=== PATIENT | male | born 1975 | race Caucasian/White ===

== ENCOUNTER 2018-11-01 17:32 | Observation (INO) | payer OTHER ==
[~2018-11-01] VITALS: Ht 180.3 cm; Wt 90.3 kg
--- OUTSIDE RECORDS SUMMARY | 2018-11-01 17:35 | XMS REPORT | Continuity of Care Document ---
Author Author [email or web address] Address Unknown Phone Unavailable Care Team Providers Care Cut Out Stitcher Name Role Phone [employer] Unavailable Unavailable Problems Problem Status Onset Date Classification Date Reported Comments Source Body mass index 25-29 - overweight 10/31/2018 Diagnosis 10/31/2018 [facility] Abscess 10/31/2018 Diagnosis 10/31/2018 [facility] Decreased testosterone level 10/31/2018 Problem 10/31/2018 [facility] Rhinitis 02/27/2018 Diagnosis 02/27/2018 [facility] Sore throat symptom 02/27/2018 Diagnosis 02/27/2018 [facility] Elevated blood pressure 02/27/2018 Diagnosis 02/27/2018 [facility] Medications Medication Details Route Status Patient Instructions Ordering Provider Order Date Source 1 ML methylprednisolone acetate 80 MG/ML Injection [Depo-Medrol] Depo-Medrol 80 mg/mL suspension for injection Take 1 mL by injection route. Active [facility] testosterone (bulk) testosterone (bulk) Active [facility] Cephalexin 500 MG Oral Capsule [Keflex] Keflex 500 mg capsule Take 1 capsule twice a day by oral route for 10 days. Active [facility] Mupirocin 0.02 MG/MG Topical Ointment mupirocin 2 % topical ointment APPLY A SMALL AMOUNT TO THE AFFECTED AREA BY TOPICAL ROUTE 3 TIMES PER DAY Active [facility] 1 ML testosterone cypionate 200 MG/ML Injection testosterone cypionate 200 mg/mL intramuscular oil INJECT 1/2 ML IM ONCE PER WEEK UTD Active [facility] Allergies, Adverse Reactions, Alerts No Known Medication Allergies Immunizations Immunization Date Given Site Status Last Updated Comments Source influenza, injectable, quadrivalent 12/05/2017 completed [facility] Results Order Name Results Value Reference Range Date Interpretation Comments Source RESULT negative 02/27/2018 [facility] SWAB LOCATION Left and Right tonsillar pillars 02/27/2018 [facility] Pathology Reports No Data Provided for This Section Diagnostic Reports No Data Provided for This Section Consultation Notes No Data Provided for This Section Discharge Summaries No Data Provided for This Section History and Physicals No Data Provided for This Section Vital Signs Vital Sign Value Date Comments Source Diastolic (mm Hg) 70 10/31/2018 [facility] Height 71 10/31/2018 [facility] Systolic (mm Hg) 118 10/31/2018 [facility] Weight 199 10/31/2018 [facility] Diastolic (mm Hg) 78 02/27/2018 [facility] Height 71 02/27/2018 [facility] Systolic (mm Hg) 120 02/27/2018 [facility] Weight 194 02/27/2018 [facility] Encounters Location Location Details Encounter Type Encounter Number Reason For Visit Attending Provider ADM Date DC Date Status Source [place] - [facility] - [id number] Dustin Moran, OCEANOGRAPHER GEOLOGICAL-C: [address] [place] [address], Ph. [id number] Dustin Flynnwe 02/27/2018 [facility] [place] - [facility] - [id number] Dustin Moran, OCEANOGRAPHER GEOLOGICAL-C: [address] [place] [address], Ph. [id number] Dustin Flynnwe 10/31/2018 [facility] Procedures Procedure Code Date Perfomer Comments Source Tonsillectomy [facility] Assessment and Plan No Data Provided for This Section Plan of Care No Data Provided for This Section Social History Social History Date Source Tobacco Smoking Status Never Smoker 02/27/2018 [facility] Family History No Data Provided for This Section Advance Directives No Data Provided for This Section Functional Status No Data Provided for This Section
--- OUTSIDE RECORDS SUMMARY | 2018-11-01 17:35 | XMS REPORT | Summary of Care ---
Author Author KAMALJIT BUTTS Organization Unknown Address Unknown Phone Unavailable Care Team Providers Care Data Integration Analyst Name Role Phone KAMALJIT BUTTS Unavailable Unavailable MARIA VICTORIA DUNLAP, CHIP Umanzor Unavailable CHIP IRENE M.D. Unavailable Unavailable Unavailable Functional Status Name Dates Details Functional status health issues are not documented Status: Name Dates Details Cognitive status health issues are not documented Status: Problems Name Dates Details Allergic rhinitis (477.9, J30.9) Status: Active Otitis, serous (381.4, H65.90) Status: Active Limb pain (729.5, M79.609) Status: Active Shoulder impingement, right (726.2, M75.41) Status: Active Headache (784.0, R51) Status: Active Paresthesia (782.0, R20.2) Status: Active Lipid screening (V77.91, Z13.220) Status: Active Maxillary sinusitis (473.0, J32.0) Status: Active Medications Name Dates Details Bonnie 180 MG TABS TAKE 1 TABLET DAILY NEEDED FOR ALLERGIES. Active Amoxicillin-Pot Clavulanate 875-125 MG Oral Tablet TAKE 1 TABLET EVERY 12 HOURS DAILY. * Quantity: 20 Refills: 0 KAMALJIT BUTTS * Start : 15-Jun-2017 End : 25-Jun-2017 Active Allergies and Adverse Reactions Name Dates Details No Known Drug Allergies (Allergy) Status: Active Past Medical History Name Dates Details History of Denial Of Any Significant Medical History Status: Resolved Procedures Procedure Dates Details History of Tonsillectomy With Adenoidectomy Completed Immunization Name Dates Details Influenza on: Jan-2014 Fluzone Quadrivalent 0.5 ML Intramuscular Suspension on: 2017 Family History Name Dates Details Family history of throat cancer (V16.0, Z80.0) Status: Active Name Dates Details Family history of Known health problems: none (V49.89, Z78.9) Status: Active Name Dates Details Family history of Prostate Cancer (V16.42) Status: Active Family history of History of prostatectomy (V45.89, Z90.79) Status: Active Name Dates Details Family history of (798.2, R99) Status: Active Name Dates Details Family history of coronary artery disease (V17.3, Z82.49) Status: Active Family history of Coronary atherosclerosis of artery bypass graft (414.04, I25.810) Status: Active Social History Name Dates Details - Status: Name Dates Details Never smoker Vital Signs Date Test Result Details [id number] BP Systolic 117 mm[Hg] Status: Comments: Location: LUE; Position: Sitting BP Diastolic 63 mm[Hg] Status: Comments: Location: LUE; Position: Sitting Height 70.39 in Status: Weight 189.42512 lb Status: Body Mass Index Calculated 26.82 kg/m2 Status: Body Surface Area Calculated 2.05 m2 Status: Temperature 97.6 f Status: Comments: Method: Oral Heart Rate 61 /min Status: Comments: Location: L Brachial Artery; Quality: Normal O2 SAT 97 % Status: Comments: Source: RA Results Date Description Value Details :21 [[facility]] LIPID PANEL CHOLESTEROL, TOTAL 157 mg/dl (Normal) Range: <200 HDL CHOLESTEROL 57 mg/dl (Normal) Range: >40 TRIGLYCERIDES 56 mg/dl (Normal) Range: <150 LDL-CHOLESTEROL 86 {MG/DL__CAL} (Normal) Comments: Reference range: <100 Desirable range <100 mg/dL for patients with CHD ordiabetes and <70 mg/dL for diabetic patients withknown heart disease. LDL-C is now calculated using the Mary Anne chopra calculation, which is a validated novel method providing better accuracy than the Friedewald equation in the estimation of LDL-C. Mark TORRES et al. CHATO. 2013;310(19): 7612-4548 (http://education.Netnui.com.com/faq/AVV533) CHOL/HDLC RATIO 2.8 {CALC} (Normal) Range: <5.0 NON HDL CHOLESTEROL 100 {MG/DL__CAL} (Normal) Range: <130 Comments: For patients with diabetes plus 1 major ASCVD risk factor, treating to a non-HDL-C goal of <100 mg/dL (LDL-C of <70 mg/dL) is considered a therapeutic option. :21 [QL] CMP W/EGFR GLUCOSE 86 mg/dl (Normal) Range: 65-99 Comments: Fasting reference interval UREA NITROGEN (BUN) 16 mg/dl (Normal) Range: 7-25 CREATININE 1.09 mg/dl (Normal) Range: 0.60-1.35 eGFR NON- 84 {ML/MIN/1.7} (Normal) Range: > OR=60 eGFR 98 {ML/MIN/1.7} (Normal) Range: > OR=60 BUN/CREATININE RATIO NOT APPLICABLE {CALC} Range: 6-22 SODIUM 141 mmol/L (Normal) Range: 135-146 POTASSIUM 5.4 mmol/L (Above high threshold) Range: 3.5-5.3 CHLORIDE 105 mmol/L (Normal) Range: 98-110 CARBON DIOXIDE 27 mmol/L (Normal) Range: 20-31 CALCIUM 9.5 mg/dl (Normal) Range: 8.6-10.3 PROTEIN, TOTAL 6.6 g/dl (Normal) Range: 6.1-8.1 ALBUMIN 4.4 g/dl (Normal) Range: 3.6-5.1 GLOBULIN 2.2 {G/DL__CALC} (Normal) Range: 1.9-3.7 ALBUMIN/GLOBULIN RATIO 2.0 {CALC} (Normal) Range: 1.0-2.5 BILIRUBIN, TOTAL 0.6 mg/dl (Normal) Range: 0.2-1.2 ALKALINE PHSPHATASE 68 u/l (Normal) Range: 40-115 AST 16 u/l (Normal) Range: 10-40 ALT 11 u/l (Normal) Range: 9-46 [id number] [QL] SED RATE BY MODIFIED WESTERGREN SED RATE BY MODIFIED WESTERGREN 2 mm/h (Normal) Range: < OR=15 [id number] [QL] CBC (INCLUDES DIFF/PLT) WHITE BLOOD CELL COUNT 5.3 {Thousand/u} (Normal) Range: 3.8-10.8 RED BLOOD CELL COUNT 5.01 {Million/uL} (Normal) Range: 4.20-5.80 HEMOGLOBIN 14.0 g/dl (Normal) Range: 13.2-17.1 HEMATOCRIT 42.2 % (Normal) Range: 38.5-50.0 MCV 84.2 fL (Normal) Range: 80.0-100.0 MCH 27.9 pg (Normal) Range: 27.0-33.0 MCHC 33.2 g/dl (Normal) Range: 32.0-36.0 RDW 12.7 % (Normal) Range: 11.0-15.0 PLATELET COUNT 252 {Thousand/u} (Normal) Range: 140-400 MPV 10.8 fL (Normal) Range: 7.5-12.5 ABSOLUTE NEUTROPHILS 2772 {cells/uL} (Normal) Range: 3853-4276 ABSOLUTE LYMPHOCYTES 1844 {cells/uL} (Normal) Range: 850-3900 ABSOLUTE MONOCYTES 307 {cells/uL} (Normal) Range: 200-950 ABSOLUTE EOSINOPHILS 318 {cells/uL} (Normal) Range: 15-500 ABSOLUTE BASOPHILS 58 {cells/uL} (Normal) Range: 0-200 NEUTROPHILS 52.3 % (Normal) LYMPHOCYTES 34.8 % (Normal) MONOCYTES 5.8 % (Normal) EOSINOPHILS 6.0 % (Normal) BASOPHILS 1.1 % (Normal) [id number] [QLH] FOLATE, SERUM FOLATE, SERUM 15.5 ng/ml (Normal) Comments: Reference Range Low: <3.4 Borderline: 3.4-5.4 Normal: >5.4 [id number]:21 [QLH] VITAMIN B12 VITAMIN B12 495 pg/ml (Normal) Range: 200-1100 33-[id number]:21 [QLH] TSH, 3RD GENERATION W/REFLEX TO FT4 Comments: REPORT COMMENT:FASTING:YES TSH, 3RD GENERATION W/REFLEX TO FT4 0.78 {MIU/L} (Normal) Range: 0.40-4.50 [id number] CT Brain wo contrast [address] SEE NOTES Comments: Exam: CT scan of the brain without contrastReason for Exam: R51 Headache - R51 HeadacheComparison Exam: NoneTechnique: Multiple axial images were obtained of the brain. 5 mm slices wereacquired without injection of intravenous contrast. Reformatted sagittal andcoronal images were obtained for additional diagnostic information. Total whjmFUL=1032 mGy-cm. This exam was performed according to our departmentaldose- optimization program, which includes automated exposure control,adjustment of the MA and/or KV according to patient size and/or use ofiterative reconstruction technique.Discussion:No abnormal fluid collections, space-occupying lesions, hydrocephalus, ormidline shift. No evidence seen for acute cortical-based ischemic infarct orintra-axial/extra-axial hematoma.No skull fractures identifie d. The orbits are unremarkable. The visualizedportions of the right maxillary sinus are completely opacified.Impression:1. No acute intracranial abnormalities appreciated.2. The visualized portions of the right maxillary sinus are completelyopacified.--Read by: Stephen Burgos MDDictated Date/time: 06/15/17 12:30Electronically Signed by: Stephen Burgos MD 06/16/1811:34FINAL REPORT Plan of Care Name Dates Details Planned Observations Planned Goals not documented Planned Encounters Appointment; KAMALJIT CASILLAS P.A. On: 30-Jun-2017 10:00 Interventions Provided Medication Changes* Amoxicillin-Pot Clavulanate 875-125 MG Oral Tablet - Start Instructions Name Dates Details Instructions not documented Encounters Appointment; TATI RIVERA M.D. Encounter Diagnosis: Problem not documented On: 26-Dec-2016 13:30 Appointment; TATI RIVERA M.D. Encounter Diagnosis: Problem not documented On: 23-Jan-2017 13:45 Appointment; KAMALJIT CASILLAS P.A. Encounter Diagnosis: Problem not documented On: 09-Jun-2017 14:30
--- OUTSIDE RECORDS SUMMARY | 2018-11-01 17:35 | XMS REPORT | Encounter Summary ---
Author Organization Unknown Address [address] [place] [address] Phone [phone] Reason for Visit Medical Complaint Instructions 1. Rhinitis Depo-Medrol 80 mg/mL suspension for injection 2. Sore throat symptom rapid strep group A, throat sore throat: care instructions 3. Elevated blood pressure elevated blood pressure: care instructions dash diet: care instructions blood pressure monitoring education 4. Body mass index 25-29 - overweight learning about healthy weight Discussion Note: None recorded. Plan of Care Patient Instructions Rhinitis is swelling and irritation in the nose. Allergies and infections are often the cause. Your nose may run or feel stuffy. Other symptoms are itchy and sore eyes, ears, throat, and mouth. If allergies are the cause, your doctor may do tests to find out what you are allergic to. You may be able to stop symptoms if you avoid the things that cause them. Your doctor may suggest or prescribe medicine to ease your symptoms. Follow-up care is a martinez part of your treatment and safety. Be sure to make and go to all appointments, and call your doctor if you are having problems. It's also a good idea to know your test results and keep a list of the medicines you take. How can you care for yourself at home? If your rhinitis is caused by allergies, try to find out what sets off (triggers) your symptoms. Take steps to avoid these triggers. Avoid yard work. It can stir up both pollen and mold. Do not smoke or allow others to smoke around you. If you need help quitting, talk to your doctor about stop-smoking programs and medicines. These can increase your chances of quitting for good. Do not use aerosol sprays, cleaning products, or perfumes. If pollen is one of your triggers, close your house and car windows during blooming season. Clean your house often to control dust. Keep pets outside. If your doctor recommends nfhh-vaj-zwobpty medicines to relieve symptoms, take your medicines exactly as prescribed. Call your doctor if you think you are having a problem with your medicine. Use saline (saltwater) nasal washes to help keep your nasal passages open and wash out mucus and bacteria. You can buy saline nose drops at a grocery store or drugstore. Or you can make your own at home by adding 1 teaspoon of salt and 1 teaspoon of baking soda to 2 cups of distilled water. If you make your own, fill a bulb syringe with the solution, insert the tip into your nostril, and squeeze gently. Blow your nose. When should you call for help? Call your doctor now or seek immediate medical care if: You are having trouble breathing. Watch closely for changes in your health, and be sure to contact your doctor if: Mucus from your nose gets thicker (like pus) or has new blood in it. You have new or worse symptoms. You do not get better as expected. Reminders Provider Appointments None recorded. Lab Rapid Strep Group a, Throat 02/27/2018 [facility] Referral None recorded. Procedures None recorded. Surgeries None recorded. Imaging None recorded. Medications Name Start Date Depo-Medrol 80 mg/mL suspension for injection Take 1 mL by injection route. testosterone (bulk) Medications Administered Name Date Depo-Medrol 80 mg/mL suspension for injection Take 1 mL by injection route. [id number] Vitals Height Weight BMI Blood Pressure 5 ft 11 in 194 lbs 27.1 kg/m2 120/78 mm[Hg] Lab Results Date Name Specimen Result Interpretation Description Value Range Status Address Rapid Strep Group a, Throat Result negative [facility]: [address] [place] [address] Swab Location Left and Right tonsillar pillars [facility]: [address] [place] [address] Allergies Code Code System Name Reaction Severity Status Onset NKDA Problems No Known Problems Procedures Date Name Performed by Tonsillectomy Information not available Vaccine List Vaccine Type influenza, injectable, quadrivalent 12/05/2017 Social History Smoking Status Never Smoker Past Encounters 02/27/2018 Rhinitis; Sore Throat Symptom; Elevated Blood Pressure; Body Mass Index 25-29 - Overweight JESSENIA Rodriguez: [address] [place] [address], Ph. History of Present Illness Dqcvt-Ghiqlsfzud-Edkikhy Reported By: Patient HPI: Location: head/sinuses. Quality: nasal/sinus congestion. Duration: 1days. Severity: mild. Onset/Timing: gradual. Context: no foreign travel, non-smoker, sick contact. Associated Symptoms: no sputum production, no shortness of breath, no wheezing, no change in number of pillows needed to sleep at night, no sweats, no significant weight gain, no significant weight loss, no morning cough, no sore throat, no vomiting, no diarrhea, no rash, no nausea, no fever, no muscle aches, no headache Review of Systems:ROS as noted in the HPI Review of Systems Basic Reported By: Patient Physical Exam Adult Basic, Adult Male Complete Reported By: Patient Constitutional: General Appearance: healthy-appearing, well-nourished, well-developed. Level of Distress: NAD. Ambulation: ambulating normally Psychiatric: Mental Status: active and alert. Orientation: to time, to place, to person Rxx-Lzdo-Zogzw-Throat: Ears: no lesions on external ear, no outer ear tenderness, EACs clear, TMs clear. Hearing: no hearing loss. Nose: no lesions on external nose, nares patent, no septal deviation, nasal passages clear, no sinus tenderness, no nasal discharge. Lips, Teeth, and Gums: no mouth or lip ulcers, no bleeding gums, normal dentition. Oropharynx: moist mucous membranes, no erythema, no exudates, tonsils not enlarged Lungs: Respiratory effort: no dyspnea, no tachypnea, no use of accessory muscles, no intercostal retractions. Auscultation: breath sounds normal, good air movement Cardiovascular: Heart Auscultation: RRR, no murmurs
--- OUTSIDE RECORDS SUMMARY | 2018-11-01 17:35 | XMS REPORT | Encounter Summary ---
Author Organization Unknown Address [address] [place] [address] Phone [phone] Reason for Visit Medical Complaint Instructions 1. Abscess Keflex 500 mg capsule mupirocin 2 % topical ointment skin abscess: care instructions culture, aerobic 2. Body mass index 25-29 - overweight learning about healthy weight Discussion Note: None recorded. Plan of Care Patient Instructions Skin Abscess without Incision and Drainage You have an abscess, which is a collection of pus in your skin. Take antibiotics only as prescribed. Once starting an antibiotic course, finish the entire course unless otherwise indicated by a medical professional. If you develop a reaction to the medication, including rash, hives, swelling of throat, or difficulty breathing, stop immediately and seek medical care. Take a daily probiotic or eat a daily yogurt. Take acetaminophen or ibuprofen per package instructions as directed to relieve pain. Keep affected area elevated when possible. Wash affected area with mild soap and warm water twice daily, gently pat the skin dry and leave open to air as much as possible. It is important to keep the abscess draining until it resolves. Apply heat several times a day to aid in drainage. Washing openings of the skin, such as cuts and scrapes, with warm soapy water can decrease the chance of getting an abscess with or without cellulitis again. If your symptoms do not improve in 48 hours or worsen, return to [facility] or follow up with your primary care provider for further evaluation. Seek immediate medical attention (ER) if you develop fever, chills, nausea, vomiting, confusion, chest pain, shortness of breath, increased pain or redness, rapid growth in size of redness and tenderness, changes in the color of the affected area, bleeding or numbness and tingling at the site, or any other concerning symptoms. If you have any need to contact [facility], including questions or concerns, please contact or . Reminders Provider Appointments None recorded. Lab Culture, Aerobic 10/31/2018 [facility] Referral None recorded. Procedures None recorded. Surgeries None recorded. Imaging None recorded. Medications Name Start Date Keflex 500 mg capsule Take 1 capsule twice a day by oral route for 10 days. mupirocin 2 % topical ointment APPLY A SMALL AMOUNT TO THE AFFECTED AREA BY TOPICAL ROUTE 3 TIMES PER DAY testosterone (bulk) testosterone cypionate 200 mg/mL intramuscular oil INJECT 1/2 ML IM ONCE PER WEEK UTD Medications Administered None recorded. Vitals Height Weight BMI Blood Pressure 5 ft 11 in 199 lbs 27.8 kg/m2 118/70 mm[Hg] Lab Results None recorded. Allergies Code Code System Name Reaction Severity Status Onset NKDA Problems Name Status Onset Date Source Decreased Testosterone Level Active 10/31/2018 Procedures Date Name Performed by Tonsillectomy Information not available Vaccine List Vaccine Type influenza, injectable, quadrivalent 12/05/2017 Social History Tobacco Smoking Status Never Smoker Past Encounters 10/31/2018 Abscess; Body Mass Index 25-29 - Overweight TAMIKO Rodriguez-C: [address] [place] [address], Ph. History of Present Illness Nzcg-Nyeurdk-Rktxi-Skin Lesion-Bite 1 Reported By: Patient HPI: Location: arms. Quality: not itchy, not painful, tender, red, single, related to trauma. Severity: moderate. Duration: has noted for 1-2 weeks. Onset/Timing: gradual onset. Context: no new detergents or skin products, no one else with similar rash, bite/sting exposure. Associated Symptoms: no fever/chills, no muscle aches, no headache, no cold symptoms, no nausea, no vomiting, no diarrhea, no urinary symptoms Review of Systems:ROS as noted in the HPI Review of Systems Basic Reported By: Patient Cardiovascular: Cardiovascular: no chest pain, no shortness of breath, no known heart murmur Physical Exam Adult Basic, Adult Male Complete Reported By: Patient Constitutional: General Appearance: healthy-appearing, well-nourished, well-developed, overweight. Level of Distress: NAD. Ambulation: ambulating normally Psychiatric: Mental Status: active and alert. Orientation: to time, to place, to person Lungs: Respiratory effort: no dyspnea, no tachypnea, no use of accessory muscles, no intercostal retractions. Auscultation: breath sounds normal, good air movement Cardiovascular: Heart Auscultation: RRR, no murmurs Skin: Inspection and palpation: no rash, no ulcer, no abnormal nevi, no nodules, good turgor, no jaundice, lesion, indurated
[2018-11-01] MEDS ORDERED: SODIUM CHLORIDE 0.9% 1000ML 1,000 ML IV STA (18:03)
[2018-11-01] MEDS ORDERED: CLINDAMYCIN 600MG / 50ML 50 ML IV ONE (18:15)
[2018-11-01 18:44] LABS: BASOPHILS % 0.4 % (0.0-1.0); EOSINOPHILS # (AUTO) 0.4 (0.0-0.4); EOSINOPHILS % 3.5 % (0.0-6.0); HEMATOCRIT 44.5 % (38.2-49.6); HEMOGLOBIN 14.7 g/dL (14.0-18.0); LYMPHOCYTES # (AUTO) 1.9 (1.0-3.2); LYMPHOCYTES % 17.8 % (18.0-39.1); MEAN CORPUSCULAR HEMOGLOBIN 27.9 pg (28-32); MEAN CORPUSCULAR VOLUME 84.4 fL (81-99); MONOCYTES # (AUTO) 0.6 (0.2-0.8); MONOCYTES % 5.8 % (4.4-11.3); NEUTROPHILS # (AUTO) 7.8 (2.1-6.9); NEUTROPHILS % 72.1 % (38.7-80.0); PLATELET COUNT 273 x10e3/uL (140-360); RED BLOOD COUNT 5.27 x10e6/uL (4.3-5.7); RED CELL DISTRIBUTION WIDTH 12.4 % (11.7-14.4)
[2018-11-01] MEDS ORDERED: ONDANSETRON HCL INJ 2MG/ML 2ML 2 MG/ML VIAL IV PRN (19:00)
[2018-11-01] MEDS ORDERED: SODIUM CHLORIDE FLUSH 10 ML SYR INJ PRN (19:00)
[2018-11-01 19:01] LABS: ANION GAP 10.8 mmol/L (8-16); BLOOD UREA NITROGEN 12 mg/dL (7-26); BUN/CREATININE RATIO 14 (6-25); CALCIUM 9.6 mg/dL (8.4-10.2); CARBON DIOXIDE 29 mmol/L (22-29); CHLORIDE 98 mmol/L (98-107); CREATININE, SERUM 0.87 mg/dL (0.72-1.25); EST GLOMERULAR FILTRATION RATE > 60 ML/MIN (60-); GLUCOSE 90 mg/dL (74-118); POTASSIUM 3.8 mmol/L (3.5-5.1); SODIUM 134 mmol/L (136-145)
--- OUTSIDE RECORDS SUMMARY | 2018-11-01 19:24 | XMS REPORT | Continuity of Care Document ---
Author Author [employer] Address Unknown Phone Unavailable Care Team Providers Care Retail Event Assistant Name Role Phone [employer] Unavailable Unavailable Problems Problem Status Onset Date [...] Date Status Source [place] - [facility] - [id number] Dustin Moran, TELECOMMUNICATIONS MANAGER-C: [address] [place] [address], Ph. [id number] Dustin Flynnwe 02/27/2018 [facility] [place] - [facility] - [id number] Dustin Moran, TELECOMMUNICATIONS MANAGER-C: [address] [place] [address], Ph. [id number] Dustin Flynnwe 10/31/2018 [facility] Procedures Procedure Code [...]
[2018-11-01] MEDS ORDERED: ACETAMINOPHEN 325 MG TAB PO PRN (20:15)
[2018-11-01] MEDS ORDERED: SODIUM CHLORIDE 0.9% 250ML 250 ML ONE (20:26)
[2018-11-01 20:35] VITALS: BP 126/83
[2018-11-01 21:19] VITALS: BP 126/83
[2018-11-01] MEDS: CLINDAMYCIN 300MG 50 ML IV SCH (23:51)
[2018-11-02 00:49] VITALS: BP 102/59
[2018-11-02 04:39] VITALS: BP 119/74
[2018-11-02 05:35] LABS: BASOPHILS # (AUTO) 0.1 (0.0-0.1); BASOPHILS % 0.5 % (0.0-1.0); EOSINOPHILS # (AUTO) 0.4 (0.0-0.4); EOSINOPHILS % 3.8 % (0.0-6.0); HEMATOCRIT 41.9 % (38.2-49.6); HEMOGLOBIN 14.1 g/dL (14.0-18.0); LYMPHOCYTES # (AUTO) 1.6 (1.0-3.2); LYMPHOCYTES % 17.4 % (18.0-39.1); MEAN CORPUSCULAR HEMOGLOBIN 28.3 pg (28-32); MEAN CORPUSCULAR HGB CONC 33.7 g/dL (31-35); MONOCYTES # (AUTO) 0.7 (0.2-0.8); MONOCYTES % 7.4 % (4.4-11.3); NEUTROPHILS # (AUTO) 6.5 (2.1-6.9); NEUTROPHILS % 70.5 % (38.7-80.0); PLATELET COUNT 233 x10e3/uL (140-360); RED BLOOD COUNT 4.99 x10e6/uL (4.3-5.7); RED CELL DISTRIBUTION WIDTH 12.5 % (11.7-14.4)
[2018-11-02 05:52] LABS: ANION GAP 11.9 mmol/L (8-16); BLOOD UREA NITROGEN 12 mg/dL (7-26); BUN/CREATININE RATIO 14 (6-25); CALCIUM 8.5 mg/dL (8.4-10.2); CARBON DIOXIDE 25 mmol/L (22-29); CHLORIDE 108 mmol/L (98-107); CREATININE, SERUM 0.85 mg/dL (0.72-1.25); EST GLOMERULAR FILTRATION RATE > 60 ML/MIN (60-); GLUCOSE 99 mg/dL (74-118); POTASSIUM 3.9 mmol/L (3.5-5.1); SODIUM 141 mmol/L (136-145)
[2018-11-02] MEDS: CLINDAMYCIN 300MG 50 ML IV SCH ×2 (06:00→12:37)
--- NOTE | 2018-11-02 07:27 | NUR ---
PATIENT IN BED RESTING WITH NO RESPIRATORY DISTRESS. ABSCESS TO RIGHT ARM, REDNESS AND SWELLING TO AREA, ELEVATED ON PILLOW. BED IN LOWER POSITION, CALL LIGHT AT REACH.
[2018-11-02 07:30] VITALS: BP 124/79
[2018-11-02 08:00] VITALS: BP 126/79
[2018-11-02 11:49] VITALS: BP 129/82
--- NOTE | 2018-11-02 11:52 | NUR ---
PATIENT ASSISTED WITH HIBICLENS BATH. REMAINS NPO FOR A PROCEDURE, CONSENT SIGNED. IN BED WITH CALL LIGHT AT REACH.
[2018-11-02] MEDS ORDERED: SEVOFLURANE INHAL SOLN 250 ML PEN BTL ONE (12:44)
[2018-11-02] MEDS ORDERED: LIDOCAINE HCL 2% LOCAL INJ 5 ML SDV VIAL INJ ONE (12:44)
[2018-11-02] MEDS ORDERED: ONDANSETRON HCL INJ 2MG/ML 2ML 2 MG/ML VIAL ONE (12:44)
[2018-11-02] MEDS ORDERED: PROPOFOL IV EMULSION 10 MG/ML 20 ML VIAL ONE (12:44)
[2018-11-02] MEDS ORDERED: FENTANYL CITRATE/PF 100MCG/2 ML INJ ONE (13:00)
[2018-11-02] MEDS ORDERED: MIDAZOLAM HCL 2 MG/2 ML VIAL ONE (13:00)
--- NOTE | 2018-11-02 13:00 | NUR ---
PATIENT OFF UNIT TO OR.
[2018-11-02] MEDS ORDERED: BUPIVACAINE 0.25%/EPI 30ML SDV INJ ONE (13:18)
[2018-11-02] MEDS ORDERED: ACETAMINOPHEN 1000 MG/100 ML 100 ML IV ONE (13:23)
[2018-11-02] MEDS ORDERED: HYDROCODONE/APAP 7.5MG-325MG 1 EA TAB PO PRN (14:15)
[2018-11-02] MEDS ORDERED: KETOROLAC TROMETHAMINE 30 MG/ML VIAL IV PRN (14:15)
--- NOTE | 2018-11-02 14:36 | Operative Report ---
DATE OF PROCEDURE: 11/02/2018 SURGEON: Israel Beckman MD PREOPERATIVE DIAGNOSIS: Cellulitis and abscess of the left arm, secondary to spider bite. POSTOPERATIVE DIAGNOSIS: Cellulitis and abscess of the left arm, secondary to spider bite. OPERATION PERFORMED: Debridement of necrotizing subcutaneous infection of the left arm. ANESTHESIA: General. COMPLICATIONS: None. ESTIMATED BLOOD LOSS: Minimal. DESCRIPTION OF PROCEDURE: With the patient lying in bed in the supine position under good general anesthesia, the left arm was prepped with Betadine solution and draped in the usual manner. There was a large bulging abscess with a lot of necrotic tissue in the mid left forearm and necrotic skin was then sharply excised with the knife. There was a lot of necrotic subcutaneous tissue underneath from the infection, likely a spider bite. All of this tissue was then sharply removed with the knife all the way down to the fascia and all of the necrotic tissue was removed. Once this was done, the wound was then copiously irrigated with dilute Betadine solution, packed with quarter-inch iodoform gauze. A dressing was applied. The sponge, lap, and needle counts were correct. The patient tolerated the procedure well and returned to the recovery room in stable condition. MD JAYNA Henriquez/MODL /[id number]
--- NOTE | 2018-11-02 14:51 | NUR ---
PATIENT BACK TO UNIT FROM OR. HAD A I/D OF LEFT ARM ABSCESS. DRESSING WITH NAIMA WRAP IN PLACE, DRY AND INTACT. DENIED PAIN AT THI TIME. ABLE TO TRANSFER SELF FROM STRETCHER TO BED. BED IN LOWER POSITION AND LOCKED, CALL LIGHT AT REACH. FAMILY MEMBER AT BED SIDE. V/S [id number]/76 AND 97% ON RA.
[2018-11-02 15:00] VITALS: BP 129/76
[2018-11-02] MEDS ORDERED: AUGMENTIN 500-1 EACH PO (16:44)
[2018-11-02] MEDS ORDERED: TYLENOL WITH C1 EACH PO (16:44)
--- NOTE | 2018-11-02 17:00 | NUR ---
Patient discharged from facility to home. reviewed discharge paperwork, follow up appts and RX's given. Dressing clean and dry. Removed IV from right AC at 1650. Pressure dressing applied.
--- NOTE | 2018-11-02 18:57 | History and Physical ---
HISTORY OF PRESENT ILLNESS: The patient is a 43-year-old male with no past medical history, came here with an abscess and cellulitis on the left forearm. The patient underwent incision and drainage by Dr. Cresencio Beckman. He is going home today with oral antibiotic as prescribed by Dr. Cresencio Beckman. REVIEW OF SYSTEMS: CARDIOVASCULAR: No chest pain or palpitation. RESPIRATORY: No shortness of breath. No cough. GASTROINTESTINAL: No nausea, vomiting, or diarrhea. GENITOURINARY: No frequency or dysuria. ALLERGIES: HE IS NOT ALLERGIC TO ANY MEDICATION. SOCIAL HISTORY: He does not smoke. He drinks occasionally. PAST MEDICAL HISTORY: Negative for any significant medical condition. PHYSICAL EXAMINATION: VITAL SIGNS: Blood pressure 122/74, temperature 37.4, heart rate 55 per minute, respiratory rate 16 per minute, oxygen saturation 95%. HEART: Showed regular rhythm. Normal S1 and S2 sounds. LUNGS: Clear bilaterally. ABDOMEN: Soft. EXTREMITIES: Dressing after surgery on the left forearm. LABORATORY DATA: On the BMP; sodium 141, potassium 3.9, chloride 108, CO2 25, BUN 12, creatinine 0.85, glucose 99. On the CBC; white blood count 9.20, hemoglobin 14.1, hematocrit 41.9, platelet count 233,000. IMPRESSION: Left forearm cellulitis status post incision and drainage. PLAN OF TREATMENT: The patient is going to continue Augmentin 875 mg tablet, 3 times a day for 10 days. He is going to be on Tylenol No.3, one tablet q.4 hours as needed for pain. The patient is going home today. He had a little short of breath. MD DEONTE Ferguson/JERALD /[id number]
--- NOTE | 2018-11-03 00:09 | Discharge Summary ---
HISTORY: 43-year-old male with no past medical history, came here with cellulitis on the left upper extremity, status post incision and drainage done by Dr. Israel Beckman, started on oral antibiotics. The patient is going home. PHYSICAL EXAMINATION: VITAL SIGNS: Blood pressure 122/74, temperature 97.4, heart rate 55 per minute, respiratory rate 16 per minute, and Oxygen saturation 95%. HEART: Regular rhythm. Normal S1 and S2 sound. LUNGS: Clear bilaterally. ABDOMEN: Soft. EXTREMITIES: Show trace edema in the left upper extremity. IMPRESSION: Cellulitis with abscess on the left upper extremity, status post incision and drainage. PLAN TREATMENT: Continue Augmentin x10 days and Tylenol No.3 as needed for pain. Follow up with Dr. Beckman in a week and follow up with me in a week. MD DEONTE Ferguson/JERALD /[id number]
== END 2018-11-02 17:07 | disposition home or self-care (01) ==
LOC: ER 17:32 → ERHOLD 19:20 → MED/SURG2 20:00
PROVIDERS: ADMIT Internal Medicine; ATTEND Internal Medicine
DX: L03.114 Cellulitis of left upper limb (principal); L02.414 Cutaneous abscess of left upper limb; T63.301A Toxic effect of unspecified spider venom, accidental (unintentional), initial encounter
CPT/HCPCS: 11000; 36415 ×2; 80048 ×2; 83605; 85025 ×2; 87040; 87071; 87075; 87186; 87205; 99284; G0378 ×2; J0131; J2001; J2250; J2405; J2704; J3010; J7030; J7050